=== PATIENT | female | born 1990 | race Caucasian/White ===

== ENCOUNTER 2016-06-03 22:38 | Emergency (ER) | payer BC ==
[2016-06-03] MEDS ORDERED: Penicillin V Potassium 500 MG Tab PO ONE (23:40)
--- NOTE | 2016-06-03 23:47 | EDM.PDOC ---
ED HPI ENT - General Chief Complaint: ENT Problem Stated Complaint: TOOTHACHE Time Seen by Provider: 06/03/16 22:58 Source of Information: Reports: Patient, RN notes reviewed History Limitations: Reports: No limitations - History of Present Illness INITIAL COMMENTS - FREE TEXT/NARRATIVE: The patient states that she has had a lower left molar toothache for a few months. She was seen by a dentist about a month ago, who did not want to extract her tooth. He recommended a root canal and referred her to an oral surgeon in [place], however, the patient states that she does not have the money. Her pain is made worse with exposure to cold. She is not sure if she has had any oral drainage. No recent fever. 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: Psychiatric History: Reports: Depression - Past Surgical History HEENT Surgical History: Reports: Adenoidectomy, Oral surgery (Energy teeth extraction), Tonsillectomy Social & Family History - Family History Family Medical History: Noncontributory Cardiac: Reports: Heart failure Endocrine/Metabolic: Reports: Diabetes, type II - Tobacco Use Smoking Status *Q: Never Smoker Second Hand Smoke Exposure: No - Caffeine Use Caffeine Use: Reports: Energy drinks - Alcohol Use Alcohol Use History: Yes Alcohol Use Frequency: Socially - Recreational Drug Use Recreational Drug Use: No - Living Situation & Occupation Living situation: Reports: , with spouse, with family (1 child) 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[facility] - Review of Systems Review Of Systems: See Below Constitutional: Reports: no symptoms HEENT: Reports: No symptoms Respiratory: Reports: No Symptoms Cardiovascular: Reports: No symptoms Endocrine: Reports: no symptoms GI/Abdominal: Reports: No symptoms : Reports: no symptoms Musculoskeletal: Reports: no symptoms Skin: Reports: no symptoms Neurological: Reports: No Symptoms Psychiatric: Reports: No symptoms Hematologic/Lymphatic: Reports: no symptoms Immunologic: Reports: no symptoms ED EXAM, ENT - Physical Exam Exam: See Below Exam Limited By: No limitations General Appearance: alert, WD/WN, no apparent distress Eye Exam: bilateral eye: EOMI, normal inspection Ears: normal external exam, normal canal, hearing grossly normal, normal TMs Nose: normal inspection, normal mucousa, no blood Mouth/Throat: Normal inspection, Normal gums, Normal lips, Normal oropharynx, Other (Tooth #1 absent. Teeth #16, 17 absent. Teeth #18 with posterolateral fracture with decay. Tooth #32 absent.) Head: atraumatic, normocephalic Neck: normal inspection, supple, non-tender, full range of motion. No: lymphadenopathy (L), lymphadenopathy (R) Course - Vital Signs Last Recorded V/S: Last Vital Signs Temp 36.3 C 06/03/16 22:50 Pulse 74 06/03/16 23:59 Resp 18 06/03/16 23:59 BP 123/68 06/03/16 23:59 Pulse Ox 100 06/03/16 22:50 - Orders/Labs/Meds Meds: Medications Discontinued Medications Generic Name Dose Route Start Last Admin Trade Name Freq PRN Reason Stop Dose Admin Penicillin V Potassium 500 mg 06/03/16 23:40 06/03/16 23:47 Veetids PO 06/03/16 23:41 500 mg ONETIME ONE Administration - Re-Assessments/Exams Free Text/Narrative Re-Assessment/Exam: 06/03/16 23:45 I will start the patient on penicillin, but she drove herself here, therefore I am not giving her a narcotic. I will prescribe tramadol. Departure - Departure Time of Disposition: 23:45 Disposition: Home, Self-Care 01 Condition: fair Clinical Impression: Dentalgia Prescriptions: Penicillin V Potassium [IJD: Penicillin V Potassium] 1 tab PO Q6H #40 tab traMADol [Ultram] 1 tab PO Q6H PRN #14 tablet PRN Reason: Pain (Severe 7-10) Instructions: Dental Caries, [id number] Referrals: PCP,None [Primary Care Provider] - Forms: ED Department Discharge Additional Instructions: You were seen in the emergency room for a lower left toothache. On examination, a significant portion of your tooth is missing, either because it has broken off, or it has decayed. You have been started on the antibiotic penicillin. Take one tablet every 6 hours, as prescribed. Finish the entire prescription unless told otherwise by a dentist. Continue to take [id number] ibuprofen, 3-4 tablets (600-800 mg) every 8 hours, with food, as needed for pain. You have been prescribed the pain medicine tramadol. Take one tablet every 6-8 hours, as needed for pain not relieved by ibuprofen. If you take tramadol, do not drive or operate heavy machinery for 12 hours afterwards. Tramadol will likely cause constipation, so consider taking a stool softener. It is imperative that you followup with a dentist or oral surgeon as soon as possible. No medicine that we can prescribe will fix this. If any other problems, please do not hesitate to return to the ER.
[2016-06-04 01:57] VITALS: BP 123/68
== END 2016-06-03 23:59 | disposition home or self-care (01) ==
LOC: JD.ED 22:38
DX: K08.89 Other specified disorders of teeth and supporting structures (principal); F32.9 Major depressive disorder, single episode, unspecified; Z88.8 Allergy status to other drugs, medicaments and biological substances; Z79.899 Other long term (current) drug therapy; Z98.890 Other specified postprocedural states
CPT/HCPCS: 99282; A9270; 99283

== ENCOUNTER 2016-10-27 04:44 | Emergency (ER) | payer BC ==
[2016-10-27] MEDS ORDERED: Metoclopramide 10 MG/2 ML SDV IVPUSH ONE (05:06)
--- NOTE | 2016-10-27 05:10 | EDM.PDOC ---
ED HPI GENERAL MEDICAL PROBLEM - General Chief Complaint: Abdominal Pain Stated Complaint: POSS FOOD POISON Time Seen by Provider: 10/27/16 05:05 Source of Information: Reports: Patient History Limitations: Reports: No Limitations - History of Present Illness INITIAL COMMENTS - FREE TEXT/NARRATIVE: 26-year-old female presents to the ED for evaluation of acute nausea and vomiting. . She states she awoke around 1800 hrs. last evening and had spontaneous onset of nausea vomiting and severe watery diarrhea. She's been sick almost continuously up until about an hour ago. She feels weak and lightheaded and dizzy. Of secondary importance is that she is about 20 weeks gestation. She is has been complicated by severe morning sickness and hyperemesis gravidarum. She uses Diclegis --usually 2 tablets 4 times daily. Now she can keep it in water crackers down. She was at a barbecue last evening but can't recall eating anything unusual. Also the rest of her family members a similar content and they are okay. Onset: Sudden Onset Date: 10/26/16 Onset Time: 18:00 Duration: Hour(s): Location: Reports: Abdomen Severity: Severe Improves with: Reports: None Worsens with: Reports: Eating Context: Reports: Other. Denies: Activity, Exercise, Lifting, Sick Contact, Trauma Associated Symptoms: Reports: Fever/Chills, Malaise, Nausea/Vomiting, Other. 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 Diclegis but it will not stay down. 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.) LMP (Approximate): > 3 Months Psychiatric History: Reports: Depression - Past Surgical History HEENT Surgical History: Reports: Adenoidectomy, Oral Surgery, Tonsillectomy Social & Family History - Family History Family Medical History: Noncontributory Cardiac: Reports: Heart Failure Endocrine/Metabolic: Reports: Diabetes, type II - Tobacco Use Smoking Status *Q: Never Smoker Second Hand Smoke Exposure: No - Caffeine Use Caffeine Use: Reports: Energy Drinks - Recreational Drug Use Recreational Drug Use: No - Living Situation & Occupation Living situation: Reports: , with Spouse, with Family Occupation: Employed ED ROS GENERAL - Review of Systems Review Of Systems: See Below Constitutional: Reports: Chills, Malaise, Weakness, Fatigue, Other. Denies: Fever HEENT: Reports: No Symptoms (Unable to eat or drink at all.) Respiratory: Reports: No Symptoms Cardiovascular: Reports: No Symptoms Endocrine: Reports: Fatigue GI/Abdominal: Reports: Diarrhea, Nausea, Vomiting. Denies: Hematemesis, Hematochezia : Reports: Discharge, Other (Is 20 weeks gestation.) Musculoskeletal: Reports: No Symptoms Skin: Reports: No Symptoms Neurological: Reports: No Symptoms ED EXAM, GI/ABD - Physical Exam Exam: See Below Exam Limited By: No Limitations General Appearance: Alert, WD/WN, No Apparent Distress, Other (Slightly pallid in appearance) Eyes: Bilateral: Normal Appearance (No jaundice.) Throat/Mouth: Other (Tongue is a little dry) Respiratory/Chest: No Respiratory Distress, Lungs Clear, Normal Breath Sounds, No Accessory Muscle Use Cardiovascular: Normal Peripheral Pulses, Regular Rate, Rhythm, No Edema, No Gallop, No Murmur, Tachycardia (Resting heart rate of 1 10/m.) GI/Abdominal Exam: Normal Bowel Sounds, Soft, No Organomegaly, Tender (Mild tenderness in the epigastrium from vomiting so much.), Other (Gravid uterus just below the umbilicus. heart tones appreciate by nursing staff at 1 63/ m on Doppler) Extremities: Normal Inspection, Normal Range of Motion, Non-Tender, No Pedal Edema Neurological: Alert, Oriented, CN II-XII Intact, Normal Cognition, Normal Gait Psychiatric: Normal Affect, Normal Mood Skin Exam: Warm, Dry, Intact, Normal Color, No Rash Course - Vital Signs Last Recorded V/S: Last Vital Signs Temp 36.1 C 10/27/16 04:59 Pulse 106 H 10/27/16 08:53 Resp 16 10/27/16 08:53 BP 98/59 L 10/27/16 08:53 Pulse Ox 99 10/27/16 08:53 Orthostatic Blood Pressure [ 105/71 Standing] Orthostatic Blood Pressure [ 88/67 Sitting] Orthostatic Blood Pressure [ 99/38 Supine] - Orders/Labs/Meds Orders: Active Orders 24 hr Category Date Time Status Orthostatic Vital Signs [RC] ASDIRECTED Care 10/27/16 05:05 Active Labs: Laboratory Tests 10/27/16 10/27/16 Range/Units 05:15 05:15 WBC 12.74 H (3.98-10.04) K/mm3 RBC 4.62 (3.98-5.22) M/mm3 Hgb 13.9 (11.2-15.7) gm/L Hct 40.8 (34.1-44.9) % MCV 88.3 (79.4-94.8) fl MCH 30.1 (25.6-32.2) pg MCHC 34.1 (32.2-35.5) g/dl RDW Std Deviation 44.7 (36.4-46.3) fL Plt Count 195 (182-369) K/mm3 MPV 10.0 (9.4-12.3) fl Neutrophils % (Manual) 80 H (40-60) % Band Neutrophils % 2 (0-10) % Lymphocytes % (Manual) 15 L (20-40) % Atypical Lymphs % 0 % Monocytes % (Manual) 3 (2-10) % Eosinophils % (Manual) 0 L (0.7-5.8) % Basophils % (Manual) 0 L (0.1-1.2) Platelet Estimate Adequate RBC Morph Comment Normal Sodium 137 (136-145) mEq/L Potassium 3.9 (3.5-5.1) mEq/L Chloride 104 (98-107) mEq/L Carbon Dioxide 21 (21-32) mEq/L Anion Gap 15.9 H (5-15) BUN 10 (7-18) mg/dL Creatinine 0.7 (0.55-1.02) mg/dL Est Cr Clr Drug Dosing TNP Estimated GFR (MDRD) > 60 (>60) mL/min BUN/Creatinine Ratio 14.3 (14-18) Glucose 111 H (74-106) mg/dL Calcium 8.6 (8.5-10.1) mg/dL Magnesium 1.6 L (1.8-2.4) mg/dl Total Bilirubin 0.4 (0.2-1.0) mg/dL AST 29 (15-37) U/L ALT 19 (14-59) U/L Alkaline Phosphatase 64 (46-116) U/L Total Protein 6.3 L (6.4-8.2) g/dl Albumin 2.7 L (3.4-5.0) g/dl Globulin 3.6 gm/dL Albumin/Globulin Ratio 0.8 L (1-2) Meds: Medications Discontinued Medications Generic Name Dose Route Start Last Admin Trade Name Freq PRN Reason Stop Dose Admin Dextrose/Sodium Chloride 1,000 mls @ 999 mls/hr 10/27/16 05:15 10/27/16 05:17 Dextrose 5%-Normal Saline IV 999 mls/hr ASDIRECTED RODRIGUE Administration Dextrose/Sodium Chloride 1,000 mls @ 999 mls/hr 10/27/16 06:30 10/27/16 06:23 Dextrose 5%-Normal Saline IV 999 mls/hr ASDIRECTED RODRIGUE Administration Lactated Ringer's 1,000 mls @ 999 mls/hr 10/27/16 07:40 10/27/16 07:45 Ringers, Lactated IV 10/27/16 08:40 999 mls/hr .BOLUS ONE Administration Lactated Ringer's Confirm 10/27/16 07:45 10/27/16 07:47 Ringers, Lactated Administered 10/27/16 07:46 Not Given Dose 1,000 mls @ as directed .ROUTE .STK-MED ONE Metoclopramide HCl 7.5 mg 10/27/16 05:06 10/27/16 05:17 Reglan IVPUSH 10/27/16 05:07 7.5 mg ONETIME ONE Administration - Radiology Interpretation Free Text/Narrative:: 26-year-old female presents to the ED because of intractable nausea vomiting and large-volume watery diarrhea that started about 1800 hrs. last evening. No Ramsey her family is ill at this time. She did eat out at a barb[employer]ony[employer] last evening but felt that she ate similar content to her family members and they're okay. Therefore uncertain as to the etiology of her acute illness viral versus foodborne illness. She is afebrile. She is 20 weeks gestation by history. Good heart tones appreciated at 6/60 3/m. Vital signs show resting tachycardia of 110/m. Orthostatic BPs are strongly positive. Lying blood pressure is 118/65 with a resting heart rate of 110 soup sitting was 107/70 with a pulse of 111 standing was 60/33 with a pulse of 162. Plan CBC CMP and serum magnesium level. IV will be D5 normal saline at open. Given Reglan 7.5 mg IV. - Re-Assessments/Exams Free Text/Narrative Re-Assessment/Exam: 10/27/16 06:18 labs reveal a white white count of 12.74 with a left shift of 80 % neutrophils and 2% band cells. Hematoma is 13.9 with hematocrit of 40.8. Platelets 195,000. Sodium 137 potassium 3.9 bicarbonate is okay at 21. Anion gap is 15.9 serum magnesium little low at 1.6. She hasn't vomited at all. She feels fine when she is lying still. Will repeat second liter of IV D5 normal saline at open. She reports that she already feels much improved after the first liter of IV fluids. No further nausea and she's not had any diarrhea since she's been in the ED. Discharged home on a clear fluid diet to avoid all dairy products and no apple or grape juice until stools are formed backup. 10/27/16 07:30: Remains orthostatic. Therefore given Ringer's lactate at open. Departure - Departure Time of Disposition: 08:45 Disposition: Home, Self-Care 01 Condition: Fair Clinical Impression: Acute gastroenteritis, Dehydration during - Discharge Information Instructions: Viral Gastroenteritis, Adult, Rehydration, Adult Referrals: Shant Valenzuela MD [Primary Care Provider] - Forms: ED Department Discharge Additional Instructions: Evaluation the emergency room tonight after development of severe in nausea vomiting and diarrhea that went on for several hours. The history would suggest foodborne illness but no definitive connection could be made to a recently eaten food that would cause this. You have been ill during the with nausea and vomiting on a nearly daily basis. Therefore most likely illness is viral in origin. Lab work did not help us out in this regard. Blood pressure is were identified to be very low with standing which we call severe orthostasis due to volume depletion. You're therefore given 2 L of D5 normal saline to rehydrate you and make sure that the fetus has adequate circulation. You did receive a medication Reglan 7.5 mg IV to arrest nausea and vomiting. This will last about 6 hours. It is safe to resume your Diclegis as needed. Suggest plenty of clear fluids today such as Gatorade Powerade as they have very similar to IV fluids to maintain hydration with all the appropriate electrolytes. Suggest avoiding all dairy products and no apple or grape juice until stools are formed back up. Usually foodborne illness or viral gastroenteritis last proximally 616-24 hours. The diarrhea can sometimes last longer depending what you eat. - My Orders Last 24 Hours: My Active Orders 10/27/16 05:05 Orthostatic Vital Signs [RC] ASDIRECTED - Assessment/Plan Last 24 Hours: My Active Orders 10/27/16 05:05 Orthostatic Vital Signs [RC] ASDIRECTED
[2016-10-27] MEDS ORDERED: Dextrose 5%-0.9% NaCl 1,000 ML IV SCH ×2 (05:15→06:30)
[2016-10-27] MEDS ORDERED: Lactated Ringers 1,000 ML IV ONE (07:40)
[2016-10-27] MEDS ORDERED: Lactated Ringers 1,000 ML ONE (07:45)
[2016-10-27 09:03] VITALS: BP 98/59
== END 2016-10-27 08:56 | disposition home or self-care (01) ==
LOC: JD.ED 04:44
DX: O99.282 Endocrine, nutritional and metabolic diseases complicating pregnancy, second trimester (principal); E86.0 Dehydration; O99.612 Diseases of the digestive system complicating pregnancy, second trimester; K52.9 Noninfective gastroenteritis and colitis, unspecified; I10 Essential (primary) hypertension; E11.9 Type 2 diabetes mellitus without complications; Z88.8 Allergy status to other drugs, medicaments and biological substances; Z3A.20 20 weeks gestation of pregnancy
CPT/HCPCS: 36415; 80053; 83735; 85025; 96361; 96374; 99284; J2765; J7042; J7120; 99283

== ENCOUNTER 2017-03-07 07:00 | Inpatient (IN) | payer BC ==
[2017-03-07] MEDS ORDERED: Sodium Chloride 0.9% 10 ML Syringe FLUSH PRN (07:43)
[2017-03-07] MEDS: Lactated Ringers 1,000 ML IV SCH ×3 (07:51→09:45)
[2017-03-07] MEDS ORDERED: Ondansetron 4 MG/2 ML SDV IVPUSH PRN (08:37)
[2017-03-07] MEDS ORDERED: diphenhydrAMINE 50 MG/ML SDV IVPUSH PRN (08:37)
[2017-03-07] MEDS ORDERED: ePHEDrine 50 MG/ML SDV IVPUSH PRN (08:37)
[2017-03-07] MEDS ORDERED: fentaNYL 100 MCG/2 ML SDV EPIDUR PRN (08:37)
[2017-03-07] MEDS ORDERED: Bupivacaine/fentaNYL/NS 100 ML Bag EPIDUR SCH (08:45)
--- NOTE | 2017-03-07 09:29 | PCM.PREANE ---
Preanesthetic Assessment - Anesthesia/Transfusion/Family Hx Anesthesia History: Prior Anesthesia Without Reaction Family History of Anesthesia Reaction: No Transfusion History: No Prior Transfusion(s) Type of Transfusion Reactions: Reports: Unknown - Review of Systems General: No Symptoms Pulmonary: No Symptoms Cardiovascular: No Symptoms Gastrointestinal: No Symptoms Neurological: No Symptoms Other: Reports: None - Physical Assessment Pulse: 114 O2 Sat by Pulse Oximetry: 97 Respiratory Rate: 18 Blood Pressure: 136/82 Temperature: 36.3 C Vital Signs: Last Vital Signs Temp 36.3 C 03/07/17 07:16 Pulse 114 H 03/07/17 07:16 Resp 18 03/07/17 07:16 BP 136/82 03/07/17 07:16 Pulse Ox Height: 1.7 m Weight: 137.484 kg ASA Class: 2 Mental Status: Alert & Oriented x3 Airway Class: Mallampati = 1 Dentition: Reports: Normal Dentition Thyro-Mental Finger Breadths: 3 Mouth Opening Finger Breadths: 3 ROM/Head Extension: Full Lungs: Clear to Auscultation, Normal Respiratory Effort Cardiovascular: Regular Rate, Regular Rhythm - Lab Values: Laboratory Last Values WBC 11.86 K/mm3 (3.98-10.04) H 03/07/17 07:58 RBC 4.23 M/mm3 (3.98-5.22) 03/07/17 07:58 Hgb 12.2 gm/L (11.2-15.7) 03/07/17 07:58 Hct 37.5 % (34.1-44.9) 03/07/17 07:58 MCV 88.7 fl (79.4-94.8) 03/07/17 07:58 MCH 28.8 pg (25.6-32.2) 03/07/17 07:58 MCHC 32.5 g/dl (32.2-35.5) 03/07/17 07:58 RDW Std Deviation 46.6 fL (36.4-46.3) H 03/07/17 07:58 Plt Count 196 K/mm3 (182-369) 03/07/17 07:58 MPV 9.7 fl (9.4-12.3) 03/07/17 07:58 Neut % (Auto) 77.9 % (34.0-71.1) H 03/07/17 07:58 Lymph % (Auto) 13.2 % (19.3-51.7) L 03/07/17 07:58 Toole % (Auto) 8.2 % (4.7-12.5) 03/07/17 07:58 Eos % (Auto) 0.3 (0.7-5.8) L 03/07/17 07:58 Baso % (Auto) 0.1 % (0.1-1.2) 03/07/17 07:58 Neut # (Auto) 9.24 K/mm3 (1.56-6.13) H 03/07/17 07:58 Lymph # (Auto) 1.56 K/mm3 (1.18-3.74) 03/07/17 07:58 Toole # (Auto) 0.97 K/mm3 (0.24-0.36) H 03/07/17 07:58 Eos # (Auto) 0.04 K/mm3 (0.04-0.36) 03/07/17 07:58 Baso # (Auto) 0.01 K/mm3 (0.01-0.08) 03/07/17 07:58 Blood Type A NEGATIVE 03/07/17 07:58 Gel Antibody Screen Negative 03/07/17 07:58 - Allergies Allergies/Adverse Reactions: Allergies Allergy/AdvReac Type Severity Reaction Status Date / Time lamotrigine [From Lamictal] Allergy Hives Verified 03/07/17 07:31 - Anesthesia Plan Pre-Op Medication Ordered: None - Acknowledgements Anesthesia Type Planned: Epidural Pt an Appropriate Candidate for the Planned Anesthesia: Yes Alternatives and Risks of Anesthesia Discussed w Pt/Guardian: Yes Pt/Guardian Understands and Agrees with Anesthesia Plan: Yes PreAnesthesia Questionnaire Cardiovascular History: Reports: Hypertension Other Cardiovascular History: as a teenager and with Gastrointestinal History: Reports: GERD 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: Neurological History: Reports: Migraines Psychiatric History: Reports: Depression - Past Surgical History HEENT Surgical History: Reports: Oral Surgery, Tonsillectomy - SUBSTANCE USE Smoking Status *Q: Never Smoker Second Hand Smoke Exposure: No Recreational Drug Use History: No - HOME MEDS Home Medications: Home Meds Penicillin V Potassium [IJD: Penicillin V Potassium] 1 tab PO Q6H #40 tab [Rx] traMADol [Ultram] 1 tab PO Q6H PRN #14 tablet 06/03/16 [Rx] - CURRENT (IN HOUSE) MEDS Current Meds: Current Medications Diphenhydramine HCl (Benadryl) 25 mg IVPUSH Q6H PRN PRN Reason: Pruritis Ephedrine Sulfate (Ephedrine Sulfate) 5 mg IVPUSH ASDIRECTED PRN PRN Reason: Hypotension Fentanyl (Sublimaze) 100 mcg EPIDUR ONETIME PRN PRN Reason: Pain Last Admin: 03/07/17 09:26 Dose: 100 mcg Fentanyl/Bupivacaine HCl (Fentanyl/Bupivacaine/Ns 2 Mcg-0.125% 100 Ml) 100 ml EPIDUR ASDIRECTED RODRIGUE Last Admin: 03/07/17 09:27 Dose: 100 ml Lactated Ringer's (Ringers, Lactated) 1,000 mls @ 100 mls/hr IV ASDIRECTED [facility] Last Admin: 03/07/17 09:13 Dose: 999 mls/hr Oxytocin 20 unit/ Lactated (Ringer's) 1,002 mls @ 500 mls/hr IV TITRATE RODRIGUE PRN Reason: Protocol Ondansetron HCl (Zofran) 4 mg IVPUSH ONETIME PRN PRN Reason: Nausea/Vomiting Sodium Chloride (Saline Flush) 10 ml FLUSH ASDIRECTED PRN PRN Reason: Keep Vein Open
--- NOTE | 2017-03-07 09:53 | PCM.LDHP ---
L&D History of Present Illness - General Date of Service: 03/07/17 Admit Problem/Dx: Patient Status Order with Admit Dx/Problem 03/07/17 07:44 Patient Status [ADT] Routine Admission Diagnosis/Problem Admission Diagnosis/Problem Source of Information: Patient History Limitations: Reports: No Limitations - History of Present Illness Introduction:: 26 y/o SANJIV 03/20/17 EGA 38w1d with H/O rupture of membranes spontaneously this morning at 0400 hrs, clear fluid. Presented to L&D at 0705 and cervical exam at that time [address] (wet tap per anesthesia) and cervix 7 cm, 100%, soft, mid-position, vertex-1 station. Cat I FHR. GBS negative. I'd type A- antibody screen negative patient did receive rogue M at 28 weeks. Initial hemoglobin and hematocrit 14.2/42.6 platelets 250,000 on 09/03/16. Rubella immune, serology nonreactive, urine culture mixed monika, hepatitis B surface antigen negative. Chlamydia and GC probe negative on 09/03/16. Hemoglobin hematocrit at 28 weeks 12.7 and 38.1 platelets 283,000. Patient developed gestational hypertension and PIH labs were essentially within normal limits. Patient having no other problems or difficulties plan delivery. Pain Score: 10 Improves with: Reports: None Worsens with: Reports: None Associated Symptoms: Reports: N - Related Data Allergies/Adverse Reactions: Allergies Allergy/AdvReac Type Severity Reaction Status Date / Time lamotrigine [From Lamictal] Allergy Hives Verified 03/07/17 07:31 Home Medications: Home Meds Penicillin V Potassium [IJD: Penicillin V Potassium] 1 tab PO Q6H #40 tab [Rx] traMADol [Ultram] 1 tab PO Q6H PRN #14 tablet 06/03/16 [Rx] Past Medical History Cardiovascular History: Reports: Hypertension Other Cardiovascular History: as a teenager and with Gastrointestinal History: Reports: [employer] History: Reports: : 2 Para: 1 (1001) LMP (Approximate): Neurological History: Reports: Migraines Psychiatric History: Reports: Depression - Past Surgical History HEENT Surgical History: Reports: Oral Surgery, Tonsillectomy Social & Family History - Family History Family Medical History: Noncontributory Cardiac: Reports: Heart Failure Endocrine/Metabolic: Reports: Diabetes, type II - Tobacco Use Smoking Status *Q: Never Smoker Second Hand Smoke Exposure: No - Caffeine Use Caffeine Use: Reports: Energy Drinks - Recreational Drug Use Recreational Drug Use: No - Living Situation & Occupation Living situation: Reports: , with Spouse, with Family Occupation: Employed H&P Review of Systems - Review of Systems: Review Of Systems: See Below General: Reports: No Symptoms HEENT: Reports: No Symptoms Pulmonary: Reports: No Symptoms Cardiovascular: Reports: No Symptoms Gastrointestinal: Reports: No Symptoms Genitourinary: Reports: No Symptoms Musculoskeletal: Reports: No Symptoms Skin: Reports: No Symptoms Psychiatric: Reports: No Symptoms Neurological: Reports: No Symptoms Hematologic/Lymphatic: Reports: No Symptoms Immunologic: Reports: No Symptoms L&D Exam - Exam Exam: See Below - Vital Signs Vital Signs: Last Vital Signs Temp 97.3 F 03/07/17 09:29 Pulse 114 H 03/07/17 09:29 Resp 18 03/07/17 09:29 BP 136/82 03/07/17 09:29 Pulse Ox 97 03/07/17 09:29 Weight: 303 lb 1.6 oz - OB Specific Fundal Height In cm: 38 Contraction Duration (sec): 60 Contraction Frequency (min): 2-3 Contraction Intensity: Mild to Moderate Movement: Active Heart Tones: Present Heart Tones per Min: 150 Heart Rate (FHR) Variability: Moderate (6-25 bmp) Presentation: Vertex - Westbrook Score Westbrook Score Cervix Position: Midposition Westbrook Score Consistency: Medium Westbrook Score Effacement: >80% Westbrook Score Dilation: > 5 cm Westbrook Score Infant's Station: -1 ,0 Westbrook Score Total: 10 - Exam General: Alert, Oriented HEENT: Conjunctiva Clear, Mucosa Moist & Padroni, PERRLA Neck: Supple, Trachea Midline Lungs: Clear to Auscultation, Normal Respiratory Effort Cardiovascular: Regular Rate, Regular Rhythm GI/Abdominal Exam: Normal Bowel Sounds, Soft, Non-Tender Genitourinary: Normal external exam, Normal bimanual exam, Normal speculum exam Back Exam: Normal Inspection, Full Range of Motion Extremities: Normal Inspection, Normal Range of Motion, Non-Tender, No Pedal Edema, Normal Capillary Refill Skin: Warm, Dry, Intact Neurological: Cranial Nerves Intact, Reflexes Equal Bilateral Psychiatric: Alert, Normal Affect, Normal Mood - Patient Data Lab Results Last 24 hrs: Laboratory Results - last 24 hr 03/07/17 03/07/17 Range/Units 07:58 07:58 WBC 11.86 H (3.98-10.04) K/mm3 RBC 4.23 (3.98-5.22) M/mm3 Hgb 12.2 (11.2-15.7) gm/L Hct 37.5 (34.1-44.9) % MCV 88.7 (79.4-94.8) fl MCH 28.8 (25.6-32.2) pg MCHC 32.5 (32.2-35.5) g/dl RDW Std Deviation 46.6 H (36.4-46.3) fL Plt Count 196 (182-369) K/mm3 MPV 9.7 (9.4-12.3) fl Neut % (Auto) 77.9 H (34.0-71.1) % Lymph % (Auto) 13.2 L (19.3-51.7) % Hale % (Auto) 8.2 (4.7-12.5) % Eos % (Auto) 0.3 L (0.7-5.8) Baso % (Auto) 0.1 (0.1-1.2) % Neut # (Auto) 9.24 H (1.56-6.13) K/mm3 Lymph # (Auto) 1.56 (1.18-3.74) K/mm3 Hale # (Auto) 0.97 H (0.24-0.36) K/mm3 Eos # (Auto) 0.04 (0.04-0.36) K/mm3 Baso # (Auto) 0.01 (0.01-0.08) K/mm3 Blood Type A NEGATIVE Gel Antibody Screen Negative Result Diagrams: 03/07/17 07:58 - Problem List (1) Gestational hypertension SNOMED Code(s): 67378504 ICD Code: O13.9 - GESTATIONAL HTN W/O SIGNIFICANT PROTEINURIA, UNSP TRIMESTER Status: Acute Current Visit: No (2) 38 weeks gestation of SNOMED Code(s): 35399328 ICD Code: Z3A.38 - 38 WEEKS GESTATION OF Status: Acute Current Visit: No Problem List Initiated/Reviewed/Updated: No Orders Last 24hrs: Active Orders 24 hr Category Date Time Status Patient Status [ADT] Routine ADT 03/07/17 07:44 Active Activity as Tolerated [RC] PFP Care 03/07/17 07:44 Active Communication Order [RC] ASDIRECTED Care 03/07/17 07:44 Active Communication Order [RC] ASDIRECTED Care 03/07/17 08:37 Active Heart Tones [RC] ASDIRECTED Care 03/07/17 07:44 Active Donald Catheter Insertion [Insert Urinary Catheter] [OM. Care 03/07/17 08:00 Ordered PC] Q24H Notify Provider [RC] ASDIRECTED Care 03/07/17 08:37 Active Notify Provider [RC] PFP Care 03/07/17 07:44 Active Notify Provider [RC] PRN Care 03/07/17 07:44 Active PCEA Epidural [RC] ASDIRECTED Care 03/07/17 07:46 Active Peripheral IV Care [RC] . DIRECTED Care 03/07/17 07:44 Active Urinary Catheter Assessment [RC] ASDIRECTED Care 03/07/17 07:47 Active Vital Signs [RC] PER UNIT ROUTINE Care 03/07/17 07:44 Active Clear Liquid Diet [DIET] Diet 03/07/17 Breakfast Active Bupivacaine/fentaNYL/NS [fentaNYL/Bupivacaine/NS 2 MCG- Med 03/07/17 08:45 Active 0.125% 100 ML] 100 ml EPIDUR ASDIRECTED Lactated Ringers [Ringers, Lactated] 1,000 ml Med 03/07/17 07:45 Active IV ASDIRECTED Ondansetron [Zofran] Med 03/07/17 08:37 Active 4 mg IVPUSH ONETIME PRN Oxytocin [Pitocin] 20 unit Med 03/07/17 07:45 Active Lactated Ringers [Ringers, Lactated] 1,000 ml IV TITRATE Sodium Chloride 0.9% [Saline Flush] Med 03/07/17 07:43 Active 10 ml FLUSH ASDIRECTED PRN diphenhydrAMINE [Benadryl] Med 03/07/17 08:37 Active 25 mg IVPUSH Q6H PRN ePHEDrine [ePHEDrine Sulfate] Med 03/07/17 08:37 Active 5 mg IVPUSH ASDIRECTED PRN fentaNYL [Sublimaze] Med 03/07/17 08:37 Active 100 mcg EPIDUR ONETIME PRN Electronic Heart Tones Ext w TOCO [WOMSER] Oth 03/07/17 07:44 Ordered Routine Electronic Heart Tones Internal [WOMSER] Per Unit Oth 03/07/17 07:44 Ordered Routine Peripheral IV Insertion Adult [OM.PC] Routine Oth 03/07/17 07:44 Ordered Resuscitation Status Routine Resus Stat 03/07/17 07:43 Ordered Medication Orders Diphenhydramine HCl (Benadryl) 25 mg IVPUSH Q6H PRN PRN Reason: Pruritis Ephedrine Sulfate (Ephedrine Sulfate) 5 mg IVPUSH ASDIRECTED PRN PRN Reason: Hypotension Fentanyl (Sublimaze) 100 mcg EPIDUR ONETIME PRN PRN Reason: Pain Last Admin: 03/07/17 09:26 Dose: 100 mcg Fentanyl/Bupivacaine HCl (Fentanyl/Bupivacaine/Ns 2 Mcg-0.125% 100 Ml) 100 ml EPIDUR ASDIRECTED [facility] Last Admin: 03/07/17 09:27 Dose: 100 ml Lactated Ringer's (Ringers, Lactated) 1,000 mls @ 100 mls/hr IV ASDIRECTED [facility] Last Admin: 03/07/17 09:45 Dose: 100 mls/hr Infusion: 03/07/17 09:45 Dose: 999 mls/hr Admin: 03/07/17 09:13 Dose: 999 mls/hr Infusion: 03/07/17 08:52 Dose: 999 mls/hr Infusion: 03/07/17 07:52 Dose: 999 mls/hr Admin: 03/07/17 07:51 Dose: 100 mls/hr Oxytocin 20 unit/ Lactated (Ringer's) 1,002 mls @ 500 mls/hr IV TITRATE RODRIGUE PRN Reason: Protocol Ondansetron HCl (Zofran) 4 mg IVPUSH ONETIME PRN PRN Reason: Nausea/Vomiting Sodium Chloride (Saline Flush) 10 ml FLUSH ASDIRECTED PRN PRN Reason: Keep Vein Open Assessment/Plan Comment:: Plan delivery.
--- NOTE | 2017-03-07 10:13 | PCM.SN ---
- Free Text/Narrative Note: Cervix 8 cm, 100% effaced, soft, anterior, vertex -1. Category 1 heart rate.
[2017-03-07] MEDS ORDERED: Oxytocin/Lactated Ringers 10 UNIT/1,000 ML BAG IV ONE (10:55)
[2017-03-07] MEDS ORDERED: Oxytocin/Lactated Ringers 10 UNIT/1,000 ML BAG IV SCH (11:00)
--- NOTE | 2017-03-07 11:10 | PCM.SN ---
- Free Text/Narrative Note: 2546 called to room for labor epidural placement. Consent received risks and complications provided, risk of epidural headache provided. Patient agreed to epidural placement. Epidural placed under sterile technique. Epidural space located with LG and 3ml sterile saline injected and syringe removed. With left hand holding epidural needle and right hand placing the syringe on cart the patient arched her back and CSF fluid flowed out of epidural needle. Epidural needle pulled back and catheter placed. Test dose negative. Epidural catheter secured in place. Patient passively positioned supine and educated on epidural headache provided. Report given to Samuel Austin. Vital signs stable. Out of room at 0936.
--- NOTE | 2017-03-07 11:20 | PCM.SN ---
- Free Text/Narrative Note: Cervix is 9 cm dilated, 100% effaced, soft, anterior, vertex 0 station. Category 1 heart rate. Cervix had not changed at 1045 and patient was started on low-dose oxytocin to help stimulate contraction pattern.
--- NOTE | 2017-03-07 12:03 | PCM.SN ---
- Free Text/Narrative Note: At noon cervix complete patient will start pushing with contractions.
--- NOTE | 2017-03-07 12:47 | PCM.DEL ---
L & D Note - General Info Date of Service: 03/07/17 Mother's Due Date: 03/20/17 - Delivery Note Labor: Spontaneous, Augmented by Oxytocin Delivery Outcome: Livebirth (Female liveborn at 1233 hrs. on Friday03/07/17 ARYAN 3270 g/7 pounds 3.3 ounces Apgars 8/9) Infant Delivery Method: Spontaneous Vaginal Delivery-Single Delivery Mode: Spontaneous Presentation: Left Occiput Anterior (ARYAN) Nuchal Cord: None Prep: Povidone-Iodine (Betadine Anesthesia Type: Epidural Episiotomy Type: None Laceration: None Placenta: Intact (Placenta delivered spontaneous at 1236 hrs. intact central cord insertion discarded), Spontaneous Cord: 3 Vessels Estimated Blood Loss: 250 Resuscitation Needed: No [place]: Suctioned, Bulb Syringe, Stimulated, Warmed, [place] Used, Warmer Used Provider: Shant Valenzuela Score 1 min: 8 Score 5 min: 9 - Patient Data Vitals - Most Recent: Last Vital Signs Temp 97.3 F 03/07/17 09:29 Pulse 114 H 03/07/17 09:29 Resp 18 03/07/17 09:29 BP 136/82 03/07/17 09:29 Pulse Ox 97 03/07/17 09:29 Weight - Most Recent: 303 lb 1.6 oz I&O - Last 24 Hours: Intake & Output 03/06/17 03/07/17 03/07/17 22:59 06:59 14:59 Intake Total 2000 Output Total 1000 Balance 1000 Lab Results Last 24 Hours: Laboratory Results - last 24 hr 03/07/17 03/07/17 Range/Units 07:58 07:58 WBC 11.86 H (3.98-10.04) K/mm3 RBC 4.23 (3.98-5.22) M/mm3 Hgb 12.2 (11.2-15.7) gm/L Hct 37.5 (34.1-44.9) % MCV 88.7 (79.4-94.8) fl MCH 28.8 (25.6-32.2) pg MCHC 32.5 (32.2-35.5) g/dl RDW Std Deviation 46.6 H (36.4-46.3) fL Plt Count 196 (182-369) K/mm3 MPV 9.7 (9.4-12.3) fl Neut % (Auto) 77.9 H (34.0-71.1) % Lymph % (Auto) 13.2 L (19.3-51.7) % [place] % (Auto) 8.2 (4.7-12.5) % Eos % (Auto) 0.3 L (0.7-5.8) Baso % (Auto) 0.1 (0.1-1.2) % Neut # (Auto) 9.24 H (1.56-6.13) K/mm3 Lymph # (Auto) 1.56 (1.18-3.74) K/mm3 [place] # (Auto) 0.97 H (0.24-0.36) K/mm3 Eos # (Auto) 0.04 (0.04-0.36) K/mm3 Baso # (Auto) 0.01 (0.01-0.08) K/mm3 Blood Type A NEGATIVE Gel Antibody Screen Negative Med Orders - Current: Current Medications Diphenhydramine HCl (Benadryl) 25 mg IVPUSH Q6H PRN PRN Reason: Pruritis Ephedrine Sulfate (Ephedrine Sulfate) 5 mg IVPUSH ASDIRECTED PRN PRN Reason: Hypotension Fentanyl (Sublimaze) 100 mcg EPIDUR ONETIME PRN PRN Reason: Pain Last Admin: 03/07/17 09:26 Dose: 100 mcg Fentanyl/Bupivacaine HCl (Fentanyl/Bupivacaine/Ns 2 Mcg-0.125% 100 Ml) 100 ml EPIDUR ASDIRECTED RODRIGUE Last Admin: 03/07/17 09:27 Dose: 100 ml Lactated Ringer's (Ringers, Lactated) 1,000 mls @ 100 mls/hr IV ASDIRECTED RODRIGUE Last Admin: 03/07/17 09:45 Dose: 100 mls/hr Oxytocin 20 unit/ Lactated (Ringer's) 1,002 mls @ 500 mls/hr IV TITRATE RODRIGUE PRN Reason: Protocol Oxytocin/Lactated Ringer's (Pitocin In Lr 10 Units/1,000 Ml) 10 unit in 1,000 mls @ 12 mls/hr IV TITRATE ORDRIGUE; 2 MUNITS/MIN PRN Reason: Protocol Last Admin: 03/07/17 10:59 Dose: 2 munits/min, 12 mls/hr Ondansetron HCl (Zofran) 4 mg IVPUSH ONETIME PRN PRN Reason: Nausea/Vomiting Sodium Chloride (Saline Flush) 10 ml FLUSH ASDIRECTED PRN PRN Reason: Keep Vein Open Discontinued Medications Oxytocin/Lactated Ringer's (Pitocin In Lr 10 Units/1,000 Ml) Confirm Administered Dose 10 unit in 1,000 mls @ as directed IV .ST-MED ONE Stop: 03/07/17 10:56 - Problem List & Annotations (1) Gestational hypertension SNOMED Code(s): 90430643 Code(s): O13.9 - GESTATIONAL HTN W/O SIGNIFICANT PROTEINURIA, UNSP TRIMESTER Status: Acute Current Visit: No (2) 38 weeks gestation of SNOMED Code(s): 51395198 Code(s): Z3A.38 - 38 WEEKS GESTATION OF Status: Acute Current Visit: No (3) Delivery normal SNOMED Code(s): 31253535 Code(s): O80 - ENCOUNTER FOR FULL-TERM UNCOMPLICATED DELIVERY; Z37.9 - OUTCOME OF DELIVERY, UNSPECIFIED Status: Acute Current Visit: Yes - Problem List Review Problem List Initiated/Reviewed/Updated: No - My Orders Last 24 Hours: My Active Orders 03/07/17 07:43 Sodium Chloride 0.9% [Saline Flush] 10 ml FLUSH ASDIRECTED PRN Resuscitation Status Routine 03/07/17 07:44 Patient Status [ADT] Routine Activity as Tolerated [RC] PFP Communication Order [RC] ASDIRECTED Heart Tones [RC] ASDIRECTED Notify Provider [RC] PFP Notify Provider [RC] PRN Peripheral IV Care [RC] . DIRECTED Vital Signs [RC] PER UNIT ROUTINE Electronic Heart Tones Ext w TOCO [WOMSER] Routine Electronic Heart Tones Internal [WOMSER] Per Unit Routine Peripheral IV Insertion Adult [OM.PC] Routine 03/07/17 07:45 Lactated Ringers [Ringers, Lactated] 1,000 ml IV ASDIRECTED Oxytocin [Pitocin] 20 unit Lactated Ringers [Ringers, Lactated] 1,000 ml IV TITRATE 03/07/17 07:46 PCEA Epidural [RC] ASDIRECTED 03/07/17 07:47 Urinary Catheter Assessment [RC] ASDIRECTED 03/07/17 08:00 Donald Catheter Insertion [Insert Urinary Catheter] [OM.PC] Q24H 03/07/17 11:00 Oxytocin/Lactated Ringers [Pitocin in LR 10 Units/1,000 ML] 10 unit in 1,000 ml IV TITRATE 03/07/17 Breakfast Clear Liquid Diet [DIET] - Plan Plan:: Plan delivery.
[2017-03-07] MEDS ORDERED: Benzocaine/Menthol 20%-0.5% Spray 56 GM Canister TOP PRN (12:54)
[2017-03-07] MEDS ORDERED: Witch Hazel Medicated Pads 100/Jar TOP PRN (12:54)
[2017-03-07] MEDS ORDERED: Acetaminophen 325 MG Tab PO PRN (12:54)
[2017-03-07] MEDS ORDERED: Docusate Sodium 100 MG Cap PO PRN (12:54)
[2017-03-07] MEDS ORDERED: Lanolin 100% Cream 7 GM Tube TOP PRN (12:54)
[2017-03-07] MEDS: Ibuprofen 600 MG Tab PO PRN ×2 (18:24→22:56)
[2017-03-07] MEDS ORDERED: Lactated Ringers 1,000 ML IV ONE (18:43)
--- NOTE | 2017-03-07 19:10 | PCM.SN ---
- Free Text/Narrative Note: Epidural Blood Patch for PDPH 03/07/2017 Start: 1819 End: 1847 Informed by the OB nurse, Samantha that Genia was experiencing increasing painful headache. It was noted by the previous anesthesia provider that the patient had positive CSF return with her epidural placement. Her epidural catheter was left in place. Upon Assessment Genia rates her headache at a 6. The headache is relieved by lying flat, but does not completely go away. She wishes to proceed with the epidural blood patch at this time. Risks and complications were discussed including, infection, intrathecal hematoma, and failed blood patch. A lab physical science technician was called to draw blood using sterile procedure. Masks were worn by everyone in the room. 25 ml of blood was successfully drawn from the patients left hand. Sterile techniques was used to access epidural catheter. Prior to injecting the blood I insturcted annmarie patient that there would be a lot of pressure associated with the injection and to tell me when the pressure was intolerable. I was able to inject with ease 21 ml of blood before Genia told me to stop. She was instructed to lie flat and as still as possible for one hour. For the next hour she is to remain in bed but may move side to side. Genia tolerated the procedure well. She has no further questions at this time. Her headache was much improved and the pressure she felt was tolerable at completion. I will continue to monitor.
--- NOTE | 2017-03-07 19:45 | PCM.SN ---
- Free Text/Narrative Note: Genia is feeling much improvement. Her headache is gone. She does still feel some pressure/discomfort in her back that is tolerable. Instructed to stay hydrated, drink soda for caffeine intake, and use motrin/tylenol as needed. Her and her verbalize understanding. No further questions at this time. She is able to move both legs bilaterally and does not complain of numbness or tingling.
[2017-03-07] MEDS ORDERED: Bupivacaine 0.25% 10 ML SDV ONE (22:22)
[2017-03-08] MEDS: Ibuprofen 600 MG Tab PO PRN ×2 (04:09→08:06)
--- NOTE | 2017-03-08 09:16 | PCM.SN ---
- Free Text/Narrative Note: Post Progress Note PPD # 1 Subjective: Doing well overall. Ambulating without difficulty. Lochia minimal. Voiding without difficulty. Tolerating regular diet without nausea or vomiting. Pain controlled with oral medications. Breast feeding with minimal difficulty. Patient reports that she developed a spinal headache last evening and received a blood patch. Reports that her headache resolved spontaneously with a blood patch. Denies any headaches, vision changes or epigastric pain. Objective: Vitals: Vital Signs - 24 hr 03/07/17 03/07/17 03/08/17 09:29 19:57 04:00 Temperature 36.3 C 37.0 C Temperature [ 36.9 C Temporal] Pulse, 114 H 102 H Peripheral Pulse, 95 Peripheral [ Pulse Oximetry] Respiratory 18 14 14 Rate Blood Pressure 136/82 146/53 H Blood Pressure 142/85 H [Upper Arm] O2 Sat by Pulse 97 100 99 Oximetry Physical Exam General: Alert and oriented, no acute distress Lungs: Clear to auscultation bilaterally Heart: Regular rate and rhythm Abdomen: Soft, minimal appropriate tenderness, non-distended, fundus midline, nontender, and below the umbilicus Extremities: Trace bilateral lower extremity edema to mid shins ASSESSMENT: 26-year-old female G 2 P 2001 s/p normal vaginal delivery PPD #1 complicated by Rh- status in and gestational hypertension. Patient developed a spinal headache in the evening of day #0 and was given a blood patch that helped with her headache. PLAN: Doing well Breast feeding with minimal difficulty. Assist as needed Lochia minimal. Continue to monitor for appropriate lochia. Continue routine care. Patient with A- blood type and infant with a positive blood type. Patient received RhoGAM this morning, 03/08/2017. Patient with mildly elevated blood pressures but had gestational hypertension in . No signs or symptoms of preeclampsia. Patient should return in 1 -2 weeks for blood pressure check. Anticipate discharge home today Angel Melton MD 9:16 AM 03/08/2017
--- NOTE | 2017-03-08 09:28 | PCM.DCSUM1 ---
Discharge Summary - Hospital Course Free Text/Narrative:: Labor: Spontaneous, Augmented by Oxytocin Delivery Outcome: Livebirth (Female liveborn at 1233 hrs. on Friday03/07/17 ARYAN 3270 g/7 pounds 3.3 ounces Apgars 8/9) Delivery Method: Spontaneous Vaginal Delivery-Single Delivery Mode: Spontaneous Presentation: Left Occiput Anterior (ARYAN) Nuchal Cord: None Prep: Povidone-Iodine (Betadine Anesthesia Type: Epidural Episiotomy Type: None Laceration: None Placenta: Intact (Placenta delivered spontaneous at 1236 hrs. intact central cord insertion discarded), Spontaneous Cord: 3 Vessels Estimated Blood Loss: 250 Resuscitation Needed: No : Suctioned, Bulb Syringe, Stimulated, Warmed, [place] Used, Warmer Used Provider: Shant Valenzuela Score 1 min: 8 Score 5 min: 9 HPI Initial Comments: Labor: Spontaneous, Augmented by Oxytocin Delivery Outcome: Livebirth (Female liveborn at 1233 hrs. on Friday03/07/17 ARYAN 3270 g/7 pounds 3.3 ounces Apgars 8/9) Delivery Method: Spontaneous Vaginal Delivery-Single Infant Delivery Mode: Spontaneous Presentation: Left Occiput Anterior (ARYAN) Nuchal Cord: None Prep: Povidone-Iodine (Betadine Anesthesia Type: Epidural Episiotomy Type: None Laceration: None Placenta: Intact (Placenta delivered spontaneous at 1236 hrs. intact central cord insertion discarded), Spontaneous Cord: 3 Vessels Estimated Blood Loss: 250 Resuscitation Needed: No : Suctioned, Bulb Syringe, Stimulated, Warmed, [place] Used, Warmer Used Provider: Shant Valenzuela Score 1 min: 8 Score 5 min: 9 Brief History: Labor: Spontaneous, Augmented by Oxytocin. Delivery Outcome: Livebirth (Female liveborn at 1233 hrs. on Friday03/07/17 ARYAN 3270 g/7 pounds 3.3 ounces Apgars 8/9). Infant Delivery Method: Spontaneous Vaginal Delivery- Single. Infant Delivery Mode: Spontaneous. Presentation: Left Occiput Anterior (ARYAN). Nuchal Cord: None. Prep: Povidone-Iodine (Betadine. Anesthesia Type: Epidural. Episiotomy Type: None. Laceration: None. Placenta : Intact (Placenta delivered spontaneous at 1236 hrs. intact central cord insertion discarded), Spontaneous. Cord: 3 Vessels. Estimated Blood Loss: 250. Resuscitation Needed: No. [place]: Suctioned, Bulb Syringe, Stimulated, Warmed, [place] Used, Warmer Used. Provider: Shant Valenzuela. Score 1 min: 8. Score 5 min: 9 - Discharge Data Discharge Date: 03/08/17 Discharge Disposition: Home, Self-Care 01 Condition: Good - Discharge Diagnosis/Problem(s) (1) Rh negative status during SNOMED Code(s): 682208033 ICD Code: O09.899 - SUPERVISION OF OTHER HIGH RISK PREGNANCIES, UNSP TRIMESTER Status: Acute Current Visit: Yes (2) 38 weeks gestation of SNOMED Code(s): 27270479 ICD Code: Z3A.38 - 38 WEEKS GESTATION OF Status: Acute Current Visit: No (3) Delivery normal SNOMED Code(s): 30258017 ICD Code: O80 - ENCOUNTER FOR FULL-TERM UNCOMPLICATED DELIVERY; Z37.9 - OUTCOME OF DELIVERY, UNSPECIFIED Status: Acute Current Visit: Yes (4) Gestational hypertension SNOMED Code(s): 56271061 ICD Code: O13.9 - GESTATIONAL HTN W/O SIGNIFICANT PROTEINURIA, UNSP TRIMESTER Status: Acute Current Visit: No - Patient Summary/Data Complications: None Consults: None Hospital Course: Genia Lin is a 26-year-old G2 now P2002 who was admitted for spontaneous rupture membranes on 03/07/2017. On admission her cervix is dilated to 6 cm. She was GBS negative. She was given an epidural, complicated by a wet tap for anesthesia. She progressed to complete and pushing. On 03/07/2017 she had a normal spontaneous vaginal delivery of a female infant at 1233. Apgars were 8 and 9. Weight was 7 lbs. 3 oz. She had a normal spontaneous delivery of the intact placenta. Estimated blood loss was 250 mL. In the evening of day #02 she developed a headache that was felt to be due to the wet tap and was a spinal headache. She was given a blood patch the resolve her headache immediately. She otherwise did well in her period. In the morning of day #1 she was ambulating without difficulty, tolerating regular diet without nausea or vomiting, voiding without difficulty, and had minimal lochia. She was breast-feeding without difficulty. She desired to be discharged home in the morning of day #1. She will follow up with Dr. Valenzuela in 2 weeks for a blood pressure check and routine check. - Patient Instructions Diet: Regular Diet as Tolerated Activity: As Tolerated Activity, Other: Nothing in the vagina for 6 weeks Driving: May Drive Today Showering/Bathing: May Shower, No Tub Bathing/Swimming (For 1 week) Notify Provider of: Fever, Increased Pain, Swelling and Redness, Drainage, Nausea and/or Vomiting - Discharge Plan Home Medications: Home Meds Penicillin V Potassium [IJD: Penicillin V Potassium] 1 tab PO Q6H #40 tab [Rx] traMADol [Ultram] 1 tab PO Q6H PRN #14 tablet 06/03/16 [Rx] Acetaminophen [Tylenol] 650 mg PO Q6H PRN tablet 03/08/17 [Rx] Benzocaine/Menthol [Dermoplast Pain Relief [place]] 1 spray TOP ASDIRECTED PRN canister 03/08/17 [Rx] Docusate Sodium [Colace] 100 mg PO BID PRN cap 03/08/17 [Rx] Ibuprofen [IJD: Ibuprofen] 600 mg PO Q6H PRN tablet 03/08/17 [Rx] Lanolin [Lansinoh HPA] 1 applic TOP ASDIRECTED PRN tube 03/08/17 [Rx] Patient Handouts: How to Take a Sitz Bath, Disposable Sitz Bath, Home Care Instructions for Mom, Vaginal Delivery, Care After, Pelvic Rest Referrals: Shant Valenzuela MD [Primary Care Provider] - (Follow-up in 2 weeks for blood pressure check and routine check.) - Discharge Summary/Plan Comment DC Time >30 min.: No - Patient Data Vitals - Most Recent: Last Vital Signs Temp 36.9 C 03/08/17 04:00 Pulse 95 03/08/17 04:00 Resp 14 03/08/17 04:00 BP 142/85 H 03/08/17 04:00 Pulse Ox 99 03/08/17 04:00 Weight - Most Recent: 137.484 kg I&O - Last 24 hours: Intake & Output 03/07/17 03/08/17 03/08/17 22:59 06:59 14:59 Intake Total 1000 1 Balance 1000 1 Lab Results - Last 24 hrs: Laboratory Results - last 24 hr 03/07/17 03/08/17 Range/Units 16:25 06:30 WBC 10.12 H (3.98-10.04) K/mm3 RBC 3.86 L (3.98-5.22) M/mm3 Hgb 11.3 (11.2-15.7) gm/L Hct 34.9 (34.1-44.9) % MCV 90.4 (79.4-94.8) fl MCH 29.3 (25.6-32.2) pg MCHC 32.4 (32.2-35.5) g/dl RDW Std Deviation 48.2 H (36.4-46.3) fL Plt Count 189 (182-369) K/mm3 MPV 9.6 (9.4-12.3) fl Neut % (Auto) 65.0 (34.0-71.1) % Lymph % (Auto) 22.9 (19.3-51.7) % [place] % (Auto) 11.0 (4.7-12.5) % Eos % (Auto) 0.7 (0.7-5.8) Baso % (Auto) 0.2 (0.1-1.2) % Neut # (Auto) 6.58 H (1.56-6.13) K/mm3 Lymph # (Auto) 2.32 (1.18-3.74) K/mm3 [place] # (Auto) 1.11 H (0.24-0.36) K/mm3 Eos # (Auto) 0.07 (0.04-0.36) K/mm3 Baso # (Auto) 0.02 (0.01-0.08) K/mm3 Blood Type Cancelled Gel Antibody Screen Cancelled Screen 0 ros/5 flds - neg RhIG Candidate? Yes Rhogam Indicated Cancelled Med Orders - Current: Current Medications Acetaminophen (Tylenol) 650 mg PO Q4H PRN PRN Reason: mild pain or fever Benzocaine/Menthol (Dermoplast Pain Relief [place]) 0 gm TOP ASDIRECTED PRN PRN Reason: Perineal Comfort Measure Docusate Sodium (Colace) 100 mg PO BID PRN PRN Reason: Constipation Emollient Ointment (Lansinoh Hpa) 0 gm TOP ASDIRECTED PRN PRN Reason: Sore Nipples Ibuprofen (Motrin) 600 mg PO Q4H PRN PRN Reason: Mild pain or fever Last Admin: 03/08/17 08:06 Dose: 600 mg Witch [place] (Tucks) 1 pad TOP ASDIRECTED PRN PRN Reason: Hemorrhoid pain Last Admin: 03/07/17 14:34 Dose: 1 applic Discontinued Medications Diphenhydramine HCl (Benadryl) 25 mg IVPUSH Q6H PRN PRN Reason: Pruritis Ephedrine Sulfate (Ephedrine Sulfate) 5 mg IVPUSH ASDIRECTED PRN PRN Reason: Hypotension Fentanyl (Sublimaze) 100 mcg EPIDUR ONETIME PRN PRN Reason: Pain Last Admin: 03/07/17 09:26 Dose: 100 mcg Fentanyl/Bupivacaine HCl (Fentanyl/Bupivacaine/Ns 2 Mcg-0.125% 100 Ml) 100 ml EPIDUR ASDIRECTED RODRIGUE Last Admin: 03/07/17 09:27 Dose: 100 ml Lactated Ringer's (Ringers, Lactated) 1,000 mls @ 100 mls/hr IV ASDIRECTED RODRIGUE Last Admin: 03/07/17 09:45 Dose: 100 mls/hr Oxytocin 20 unit/ Lactated (Ringer's) 1,002 mls @ 500 mls/hr IV TITRATE RODRIGUE PRN Reason: Protocol Oxytocin/Lactated Ringer's (Pitocin In Lr 10 Units/1,000 Ml) 10 unit in 1,000 mls @ 12 mls/hr IV TITRATE RODRIGUE; 2 MUNITS/MIN PRN Reason: Protocol Last Titration: 03/07/17 12:33 Dose: 0 munits/min, 0 mls/hr Oxytocin/Lactated Ringer's (Pitocin In Lr 10 Units/1,000 Ml) Confirm Administered Dose 10 unit in 1,000 mls @ as directed IV .STK-MED ONE Stop: 03/07/17 10:56 Lactated Ringer's (Ringers, Lactated) 1,000 mls @ 999 mls/hr IV .BOLUS ONE Stop: 03/07/17 19:43 Last Admin: 03/07/17 18:47 Dose: 999 mls/hr Ondansetron HCl (Zofran) 4 mg IVPUSH ONETIME PRN PRN Reason: Nausea/Vomiting Sodium Chloride (Saline Flush) 10 ml FLUSH ASDIRECTED PRN PRN Reason: Keep Vein Open *Q Meaningful Use (DIS) - VTE *Q VTE Criteria *Q: - Stroke *Q Stroke Criteria *Q: - AMI *Q AMI Criteria *Q:
[2017-03-08 11:50] VITALS: BP 129/59
--- NOTE | 2017-03-09 20:44 | PCM48HPAN ---
Post Anesthesia Note - EVALUATION WITHIN 48HRS OF ANESTHETIC Vital Signs in Normal Range: Yes Patient Participated in Evaluation: Yes Respiratory Function Stable: Yes Airway Patent: Yes Cardiovascular Function Stable: Yes Hydration Status Stable: Yes Pain Control Satisfactory: Yes Nausea and Vomiting Control Satisfactory: Yes Mental Status Recovered: Yes - COMMENTS/OBSERVATIONS Free Text/Narrative:: Headache resolved, up ambulating without problems.
== END 2017-03-08 13:20 | disposition home or self-care (01) | DRG 560 ==
LOC: JD.OBCHECK 07:00 → JD.OB 07:00 → JD.OBCHECK 07:44 → OBSVTOIN 12:33 → JD.OB 12:33
PROVIDERS: ADMIT Obstetrics & Gynecology; ATTEND Obstetrics & Gynecology
PROC: 10E0XZZ Delivery of Products of Conception, External Approach (ICD-10-PCS; principal; 2017-03-07)
PROC: 00HU33Z Insertion of Infusion Device into Spinal Canal, Percutaneous Approach (ICD-10-PCS; 2017-03-07)
PROC: 3E0R3BZ Introduction of Anesthetic Agent into Spinal Canal, Percutaneous Approach (ICD-10-PCS; 2017-03-07)
PROC: 3E0R3GC Introduction of Other Therapeutic Substance into Spinal Canal, Percutaneous Approach (ICD-10-PCS; 2017-03-07)
DX: O42.02 Full-term premature rupture of membranes, onset of labor within 24 hours of rupture (principal); Z3A.38 38 weeks gestation of pregnancy; Z37.0 Single live birth; Z88.8 Allergy status to other drugs, medicaments and biological substances; O13.4 Gestational [pregnancy-induced] hypertension without significant proteinuria, complicating childbirth; O89.4 Spinal and epidural anesthesia-induced headache during the puerperium
CPT/HCPCS: 36415; 51702; 59409; 85025; 85461; 86850; 86900; 86901; A9270-GY; J2590; J2790; J3010; J7120

== ENCOUNTER 2024-11-21 14:51 | Emergency (ER) | payer BC ==
[2024-11-21 15:37] LABS: BASOPHILS ABSOLUTE AUTO 0.1 K/mm3 (0.0-0.2); BASOPHILS PERCENT AUTO 0.5 % (0.0-1.0); EOSINOPHILS ABSOLUTE AUTO 0.1 K/mm3 (0.0-0.4); EOSINOPHILS PERCENT AUTO 1.4 % (0.0-6.0); IMMATURE GRAN ABSOLUTE AUTO 0.03 K/mm3 (0.00-0.05); IMMATURE GRAN PERCENT AUTO 0.3 % (0.0-0.4); LYMPHOCYTES ABSOLUTE AUTO 1.2 K/mm3 (1.0-4.8); LYMPHOCYTES PERCENT AUTO 12.9 % (24.0-44.0); MEAN PLATELET VOLUME 9.7 fl (9.4-12.3); MONOCYTES ABSOLUTE AUTO 0.7 K/mm3 (0.0-0.8); MONOCYTES PERCENT AUTO 7.4 % (0.0-8.0); NEUTROPHILS ABSOLUTE AUTO 7.2 K/mm3 (1.8-7.7); NEUTROPHILS PERCENT AUTO 77.5 % (41.0-71.0); NRBC ABSOLUTE 0.00 (0.00-0.02); NRBC PERCENT 0.0 % (0.0-0.2); PLATELET COUNT,PLT 253 K/mm3 (150-400); RED BLOOD CELL COUNT 4.44 M/mm3 (4.10-5.30); WHITE BLOOD CELL COUNT,WBC 9.29 K/mm3 (3.9-11.3)
[2024-11-21 16:07] LABS: A/G RATIO 0.9 (1-2); ALANINE AMINOTRANSFERASE,ALT 387.0 U/L (14-59); ASPARTATE AMNIOTRANSFERASE,AST 311.0 U/L (15-37); BILIRUBIN TOTAL 1.3 mg/dL (0.2-1.0); BLOOD UREA NITROGEN,BUN 12.0 mg/dL (7-18); CARBON DIOXIDE,CO2 27.0 mEq/L (21-32); CHLORIDE,CL 104.0 mEq/L (98-107); CREATININE 0.9 mg/dL (0.55-1.02); EST CRCL DRUG DOSING (CG) 86.46 mL/min; ESTIMATED GFR 87.0 mL/min (>60); GLUCOSE RANDOM 119.0 mg/dL (70-99); POTASSIUM,K 3.8 mEq/L (3.5-5.1); PROTEIN TOTAL,TP 6.7 g/dl (6.4-8.2); SODIUM,NA 140.0 mEq/L (136-145)
[2024-11-21 17:05] LABS: APPEARANCE,URINE SLT CLOUDY (Clear); GLUCOSE,URINE NEGATIVE (Negative); OCCULT BLOOD,URINE NEGATIVE (Negative)
[2024-11-21] MEDS: Hyoscyamine 0.125 MG Tab.SL SL ONE (17:15)
[2024-11-21] MEDS: Ondansetron 4 MG/2 ML SDV IVPUSH ONE (18:22)
[2024-11-21] MEDS: Sodium Chloride 0.9% 10 ML Syringe FLUSH PRN (18:24)
[2024-11-21] MEDS ORDERED: Sodium Chloride 0.9% 10 ML Syringe FLUSH ONE (18:49)
[2024-11-21] MEDS: Iopamidol 612 MG/ML 100 ML Bottle IVPUSH ONE (18:55)
[2024-11-21 19:52] VITALS: BP 121/66; PULSE 86
== END 2024-11-21 19:49 | disposition home or self-care (01) ==
LOC: JD.ED 14:51
DX: K80.50 Calculus of bile duct without cholangitis or cholecystitis without obstruction (principal); I10 Essential (primary) hypertension; E66.9 Obesity, unspecified; Z88.8 Allergy status to other drugs, medicaments and biological substances; Z68.43 Body mass index [BMI] 50.0-59.9, adult
CPT/HCPCS: 36415; 74177; 76705; 80053; 81003; 81025; 83690; 85025; 86140; 96374; 96375; 99284; A9270; J2405; Q9967; J1171

== ENCOUNTER 2024-12-29 11:58 | Emergency (ER) | payer BC ==
[2024-12-29] MEDS: Ondansetron 4 MG/2 ML SDV IVPUSH ONE (13:11)
[2024-12-29] MEDS: Hyoscyamine 0.125 MG Tab.SL SL ONE (13:14)
[2024-12-29 13:41] LABS: BASOPHILS ABSOLUTE AUTO 0.1 K/mm3 (0.0-0.2); BASOPHILS PERCENT AUTO 0.5 % (0.0-1.0); EOSINOPHILS ABSOLUTE AUTO 0.1 K/mm3 (0.0-0.4); EOSINOPHILS PERCENT AUTO 0.9 % (0.0-6.0); IMMATURE GRAN ABSOLUTE AUTO 0.04 K/mm3 (0.00-0.05); IMMATURE GRAN PERCENT AUTO 0.4 % (0.0-0.4); LYMPHOCYTES ABSOLUTE AUTO 1.3 K/mm3 (1.0-4.8); LYMPHOCYTES PERCENT AUTO 13.1 % (24.0-44.0); MEAN PLATELET VOLUME 9.5 fl (9.4-12.3); MONOCYTES ABSOLUTE AUTO 1.0 K/mm3 (0.0-0.8); MONOCYTES PERCENT AUTO 9.6 % (0.0-8.0); NEUTROPHILS ABSOLUTE AUTO 7.7 K/mm3 (1.8-7.7); NEUTROPHILS PERCENT AUTO 75.5 % (41.0-71.0); NRBC ABSOLUTE 0.00 (0.00-0.02); NRBC PERCENT 0.0 % (0.0-0.2); PLATELET COUNT,PLT 246 K/mm3 (150-400); RED BLOOD CELL COUNT 4.52 M/mm3 (4.10-5.30); WHITE BLOOD CELL COUNT,WBC 10.20 K/mm3 (3.9-11.3)
[2024-12-29 14:14] LABS: A/G RATIO 0.9 (1-2); ALANINE AMINOTRANSFERASE,ALT 449.0 U/L (14-59); ASPARTATE AMNIOTRANSFERASE,AST 321.0 U/L (15-37); BILIRUBIN TOTAL 1.9 mg/dL (0.2-1.0); BLOOD UREA NITROGEN,BUN 14.0 mg/dL (7-18); CARBON DIOXIDE,CO2 24.0 mEq/L (21-32); CHLORIDE,CL 105.0 mEq/L (98-107); CREATININE 0.8 mg/dL (0.55-1.02); EST CRCL DRUG DOSING (CG) 97.27 mL/min; ESTIMATED GFR 100.0 mL/min (>60); GLUCOSE RANDOM 100.0 mg/dL (70-99); PROTEIN TOTAL,TP 7.1 g/dl (6.4-8.2); SODIUM,NA 140.0 mEq/L (136-145)
[2024-12-29 14:19] LABS: POTASSIUM,K 4.2 mEq/L (3.5-5.1)
[2024-12-29 18:09] LABS: A/G RATIO 0.9 (1-2); ALANINE AMINOTRANSFERASE,ALT 511.0 U/L (14-59); ASPARTATE AMNIOTRANSFERASE,AST 362.0 U/L (15-37); BILIRUBIN TOTAL 2.8 mg/dL (0.2-1.0); BLOOD UREA NITROGEN,BUN 12.0 mg/dL (7-18); CARBON DIOXIDE,CO2 24.0 mEq/L (21-32); CHLORIDE,CL 107.0 mEq/L (98-107); CREATININE 0.8 mg/dL (0.55-1.02); EST CRCL DRUG DOSING (CG) 97.27 mL/min; ESTIMATED GFR 100.0 mL/min (>60); GLUCOSE RANDOM 99.0 mg/dL (70-99); POTASSIUM,K 4.1 mEq/L (3.5-5.1); PROTEIN TOTAL,TP 6.7 g/dl (6.4-8.2); SODIUM,NA 141.0 mEq/L (136-145)
[2024-12-29 20:50] VITALS: BP 134/74; PULSE 90
== END 2024-12-29 20:35 ==
LOC: JD.ED 11:58
DX: K80.50 Calculus of bile duct without cholangitis or cholecystitis without obstruction (principal); R94.5 Abnormal results of liver function studies; I10 Essential (primary) hypertension; E66.9 Obesity, unspecified; Z68.43 Body mass index [BMI] 50.0-59.9, adult; Z88.8 Allergy status to other drugs, medicaments and biological substances; Z79.899 Other long term (current) drug therapy
CPT/HCPCS: 36415; 76705; 76705-26; 80053; 83690; 84703; 85025; 86140; 96374; 96375; 99285; 99285-25; A9270-GY; J1171; J2405; J7030